=== PATIENT | female | born 1985 | race Caucasian/White ===

== ENCOUNTER → 2016-06-17 | Outpatient (REF) | payer OTHER ==
[2016-06-17 17:15] LABS: FREE T4 1.28 NG/DL (0.76-1.46)
== END ==
LOC: M LABDRAW1 15:16
PROVIDERS: ATTEND Internal Medicine Endocrinology, Diabetes & Metabolism
DX: E05.20 Thyrotoxicosis with toxic multinodular goiter without thyrotoxic crisis or storm (principal)

== ENCOUNTER → 2016-09-30 | Outpatient (REF) | payer OTHER ==
[2016-09-30 13:32] LABS: FREE T4 1.22 NG/DL (0.76-1.46)
== END ==
LOC: M LABDRAW1 11:36
PROVIDERS: ATTEND Physician Assistant Medical
DX: E05.20 Thyrotoxicosis with toxic multinodular goiter without thyrotoxic crisis or storm (principal)

== ENCOUNTER → 2017-06-10 | Outpatient (REF) | payer OTHER ==
[2017-06-10 14:27] LABS: THYROID STIMULATING HORMONE 0.519 uIU/ML (0.358-3.740)
[2017-06-10 14:27] LABS: FREE T4 1.25 NG/DL (0.76-1.46)
== END ==
LOC: M LABDRAW1 11:51
DX: E04.0 Nontoxic diffuse goiter (principal)